=== PATIENT | male | born 2005 | race Caucasian/White ===

== ENCOUNTER 2024-10-10 13:25 | Outpatient (CLI) | payer OTHER, SELFPAY ==
--- OUTSIDE RECORDS SUMMARY | 2024-01-21 07:15 | XMS_ITS | Continuity of Care Document ---
Author Organization [facility] Address [address] [place] [address] [place] [address] Phone Care Team Providers Care Biodiesel Plant Operations Engineer Name Role Phone Gary SOLORZANO, Amador Unavailable Unavailab le Allergies, Adverse Reactions, Alerts Substance Reaction Status Criticality No Known Allergies Active No Inform ation Advance Directives Directive Yes / No Effective Date File Name No Information Encounters Encounter Description Practice Location Reason(s) For Visit Diagnoses Date Provider Providers Copied on Encounter [facility] [address], [address], [place] tel:[phone] [place] straight/sq uiggly lines in vision (chief complaint) Other visual disturbances Dec- 4 Gary reyes. [address] [place] [address], [id number] , [place]. tel:[phone] Referring Provider: Amador Peraza, [address] [place] [address], [id number]. tel:[phone] Family History Family Member Type Diagnosis Age At Onset Grandfather Problem Cataracts Payers Payer name Insurance type Covered democrat ID Authoriza tion(s) R CI [id number] Social History Type Description Quantity Date Captured Comments Alcohol Use Details Unknown Caffeine Use Details Unknown Tobacco Use Status No Information Smoking Status No Information Sex Male Chief Complaint And Reason For Visit From encounter dated '01/21/2024 11:15'. straight/squiggly lines in vision (chief complaint). Description: The 18 year old patient presents for evaluation of straight/squiggly lines in vision. For the past few months patient has noticed that when looking at white boards, phone screens, or bright/well lit backgrounds he sees squiggly/staright lines. they are in random spots and he notices the lines follow when he looks into a different direction.Does not currently wear glasses. Reason For Referral Reason For Referral No Information History Of Present Illness Encounter Date Complaint History Of Prese nt Illness straight/squiggly lines in visio n The 18 year old patient presents for evaluation of straight/squiggly lines in vision. For the past few months patient has noticed that when looking at white boards, phone screens, or bright/well lit backgrounds he sees squiggly/staright lines. they are in random spots and he notices the lines follow when he looks into a different direction.Does not currently wear glasses. Functional Status Date Functional Assessmen t No Information Instructions Date Instruction Additional Infor matvictorina Impression/Plan Related to Other visual disturbances Assessments Type Assessment Date assessment Other visual disturbances impression Other visual disturbances: H53.8 Patient Care Teams Name Effective Dates (start - stop) Status Members No Information
--- NOTE | 2024-10-10 13:30 | XR_ITS ---
FINAL REPORT CLINICAL HISTORY: Assess stool burden FINDINGS: The visualized intestinal gas pattern appears unremarkable without evidence to suggest obstruction. There is mild diffuse fecal impaction. No abnormal radiopacities are seen in the abdomen. IMPRESSION: Mild diffuse fecal impaction. Reviewed, Interpreted and Dictated by Jordan Jauregui MD Transcribed by Juliet Baldwin Authenticated and [facility]
--- OUTSIDE RECORDS SUMMARY | 2024-10-10 13:34 | XMS_ITS | Clinical Summary ---
Author Organization [facility] Address [address] [place] [address] Care Team Providers Care Service Station Operator Name Role Phone Matt Sun MD Primary Care Provider [phone] Allergies No known active allergies Medications bacitracin 500 UNIT/GM ointment Apply to chin laceration twice a day for 5 days 14 g Active Social History Tobacco Use Types Packs/Day Years Used Date Smoking Tobacco: Never Assessed PHQ-2 Answer Date Recorded Patient Health Questionnaire-2 Score 0 05/26/2022 PHQ-2A Answer Date Recorded Patient Health Questionnaire-2 Score 0 05/26/2022 Sex and Gender Information Value Date Recorded Sex Assigned at Not on file Legal Sex Male 6:01 PM EDT Gender Identity Not on file Sexual Orientation Not on file Last Filed Vital Signs Vital Sign Reading Time Taken Comments Blood Pressure 125/74 08/05/2022 8:48 AM EDT Pulse 60 05/26/2022 7:54 AM EST Temperature 36.3 C (97.4 F) 04/21/2022 11:03 PM EST Respiratory Rate 19 04/22/2022 12:00 AM EST Oxygen Saturation 97% 05/26/2022 7:54 AM EST Inhaled Oxygen Concentration - - Weight 81.6 kg (180 lb) 08/05/2022 8:48 AM EDT Height 193 cm (6' 4 ) 08/05/2022 8:48 AM EDT Body Mass Index 21.91 08/05/2022 8:48 AM EDT Plan of Treatment Health Maintenance Due Date Last Done Comments [facility]-HIV Screening 2004 [facility]-Hepatitis C Screening 2004 [facility]-Infant/Child/Adol SDOH Screenings 2004 [facility]- SDOH Screenings 02/17/2022 [facility]-Adult SDOH Screenings 02/17/2022 [facility]-Depression Screening 05/26/2023 05/26/2022 [facility]-YEFAC-25 Vaccine (3 - season) 2023 05/08/2020, 04/18/2020 [facility]-Influenza Vaccine (#1) 2024 01/30/2022, [facility]-DTaP,Tdap,and Td Vaccines (7 - Td or Tdap) 04/12/2025 04/12/2015, 02/28/2008, 08/19/2005, Additional history exists [facility]-Zoster Vaccines (1 of 2) 02/17/2054 02/28/2008, 02/23/2005 [facility]-Hepatitis B Vaccines Completed 005, 2004, 2004, Additional history exists [facility]-Pneumococcal Vaccine: Pediatrics (0 to 5 Years) and At-Risk Patients (6 to 49 Years) Aged Out 02/23/2005, 2004, 2004, Additional history exists No longer eligible based on patient's age to complete this topic [facility]-HIB Vaccines Completed 05/20/2005, , 2004 [facility]-Hepatitis A Vaccines Completed 02/27/2007, 04/30 [facility]-IPV Vaccines Completed 02/28/2008, , 2004, Additional history exists [facility]-Varicella Vaccines Completed 02/28/2008, 2004 HPV Vaccines Completed 03/14/2018, 04/29/2017 [facility]-Rotavirus Vaccines Aged Out No lo nger eligible based on patient's age to complete this topic Insurance [employer] [address] [place] [address] [facility] APART[facility] [address] [place] [address] [employer] [facility] APARTMENT [address] [place] [address] HEALTHCARE Care Teams Service Station Operator Relationship Specialty Start Date End Date Matt Sun MD [address] [place] [address] PCP - General Pediatrics 03/08/21
== END 2024-10-10 23:59 | disposition home or self-care (01) ==
LOC: RAD 13:28
PROVIDERS: PCP Pediatrics; Visit Provider Internal Medicine Gastroenterology
DX: K56.41 Fecal impaction (principal)
CPT/HCPCS: 74018